=== PATIENT | male | born 1980 | race Caucasian/White ===

== ENCOUNTER 2016-06-19 10:22 | Emergency (ER) | payer SELFPAY | END 2016-06-19 12:30 | disposition home or self-care (01) | LOC: ER1 10:22 | DX: S60.012A Contusion of left thumb without damage to nail, initial encounter (principal); F17.210 Nicotine dependence, cigarettes, uncomplicated; W22.8XXA Striking against or struck by other objects, initial encounter; Y92.69 Other specified industrial and construction area as the place of occurrence of the external cause; Y99.0 Civilian activity done for income or pay | CPT/HCPCS: 29125; 73130; 80307; 99283 ==

== ENCOUNTER 2021-04-19 15:54 | Emergency (ER) | payer SELFPAY | END 2021-04-19 18:02 | disposition home or self-care (01) | LOC: ER1 15:54 | DX: S93.401A Sprain of unspecified ligament of right ankle, initial encounter (principal); F17.210 Nicotine dependence, cigarettes, uncomplicated; X50.9XXA Other and unspecified overexertion or strenuous movements or postures, initial encounter | CPT/HCPCS: 73610; 73630; 99283 ==